=== PATIENT | female | born 1965 | race Caucasian/White ===

== ENCOUNTER 2016-10-04 09:19 | Day surgery (SDC) | payer OTHER ==
[2016-09-28 12:24] LABS: BASOPHILS 0.3 %; BASOPHILS ABSOLUTE 0.03 10/3/uL (0.0-0.16); EOSINOPHILS 1.4 %; EOSINOPHILS ABSOLUTE 0.13 10/3/uL (0.0-0.53); HEMATOCRIT 47.7 % (36.0-48.0); HEMOGLOBIN 16.5 g/dL (12.0-16.0); IMMATURE GRANULOCYTES 0.3 %; IMMATURE GRANULOCYTES ABSOLUTE 0.03 10/3/uL (0.0-0.11); LYMPHOCYTES 30.1 %; LYMPHOCYTES ABSOLUTE 2.72 10/3/uL (0.67-4.30); MANUAL DIFF NO %; MEAN CORPUS HGB CONC 34.6 g/dL (32.0-36.0); MEAN CORPUSCULAR HEMOGLOB 32.2 pg (26.0-34.0); MONOCYTES 5.9 %; MONOCYTES ABSOLUTE 0.53 10/3/uL (0.21-1.20); PLATELET COUNT 226 10/3/uL (150-400); RED CELL COUNT 5.13 10/6/uL (4.0-5.6)
[2016-09-28 12:42] LABS: A/G RATIO 1.2 (0.7-1.9); ALKALINE PHOSPHATASE 80 U/L (45-117); BUN (BLOOD UREA NITROGEN) 12 MG/DL (6-23); CALCIUM, SERUM 9.2 MG/DL (8.5-10.4); CHLORIDE, SERUM 104 MMOL/L (96-112); CO2 (CARBON DIOXIDE) 28 MMOL/L (24-34); CREATININE 0.89 MG/DL (0.55-1.02); GFR AFRICAN AMERICAN 86 ML/MIN (>=60); GFR NON AFRICAN AMERICAN 75 ML/MIN (>=60); SGOT(AST) 43 U/L (5-40); SGPT(ALT) 100 U/L (5-65); SODIUM, SERUM 140 MMOL/L (135-148); TOTAL BILIRUBIN 0.7 MG/DL (0-1.2); TOTAL PROTEIN 7.4 G/DL (6.0-8.5)
[2016-09-28 12:43] LABS: GLOBULIN 3.4 G/DL (2.5-4.1); GLUCOSE, SERUM 167 MG/DL (60-99)
--- NOTE | ~2016-10-04 | PREOPHP ---
PreOp History and Physical [place] [id number] [facility] [place]. [address] NAME: CASE,PEG CARRILLO : 61 [place]US : [place] [facility] [place]#: [id number] AGE: 50 ADM/REG DATE : 10/04/16 MR#: [id number] REPORT SERV DATE: 10/04/16 DICTATED BY: IKE LAWTON III DATE: 09/12/16 REPORT STATUS : Draft TRANSCRIBED BY: MODHazel DATE: 09/12/16 HISTORY OF PRESENT ILLNESS: This 50-year-old female comes to the operating room for a wide local resection of recurrent hidradenitis suppurativa of the right proximal thigh. The patient has a history of recurrent hidradenitis suppurativa of the right proximal thigh. This is associated with recurrent infections and drainage, pain and swelling. The patient had a similar problem which was resected widely approximately three years ago. She comes now for a wide local resection of recurrent hidradenitis suppurativa of the right proximal thigh. PAST MEDICAL HISTORY: 1. History of recent abscess of right anterior thigh related to hidradenitis suppurativa. 2. History of previous right thigh hidradenitis suppurativa, status post resection in 2012. 3. History of incisional hernia repair. 4. History of sigmoid colectomy for diverticular disease. ALLERGIES: NONE. MEDICATIONS: Augmentin. SOCIAL HISTORY: The patient lives in [place], [place]. 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 She is . The patient has a previous history of tobacco use and a current history of alcohol use. FAMILY HISTORY: Positive for diabetes and heart disease. REVIEW OF SYSTEMS: The patient's 14-point review of systems is otherwise unremarkable. PHYSICAL EXAMINATION: GENERAL: This is a somewhat obese female, in no acute distress. She is alert and oriented x3. VITAL SIGNS: Blood pressure 156/94, pulse 72, temperature 97.7. HEENT: Unremarkable. Cranial nerves 2 through 12 are normal. LUNGS: Clear. CARDIAC: Normal. ABDOMEN: Soft, nontender. EXTREMITIES: In the right thigh, there is a small area of induration with open sinus tract. There are several sinus tracts in the area and areas of induration consistent with chronic hidradenitis suppurativa. There was a previous abscess in this area which has been drained. ASSESSMENT: 1. 50-year-old female with recurrent hidradenitis suppurativa of the right proximal thigh or right groin area. 2. Obesity. 3. History of previous sigmoid colectomy for diverticular disease. 4. History of resection of previous hidradenitis suppurativa of the right proximal thigh. PreOp History and Physical [address] [address] NAME: CASE,PEG CARRILLO : 61 STATUS : REG [facility]#: [id number] AGE: 50 ADM/REG DATE : 10/04/16 MR#: [id number] REPORT SERV DATE: 10/04/16 DICTATED BY: IKE LAWTON III DATE: 09/12/16 REPORT STATUS : Draft TRANSCRIBED BY: VLAD DATE: 09/12/16 PLAN: The patient comes now for a wide local resection of this area of hidradenitis suppurativa of the right thigh. This procedure, the risks, benefits, and alternatives, including not limited to the risk for bleeding, infection, pain, swelling, scarring, deformity to the area, seroma formation, hematoma formation, wound failure, wound dehiscence, requiring chronic wound care, recurrent hidradenitis suppurativa requiring further surgery, nerve injury, chronic paresthesia, pain in the thigh, groin, or labia, nerve injury with muscle weakness or paralysis to the involved extremity, chronic lymphedema, and unforeseen complications including deep venous thrombosis, pulmonary embolus, myocardial infarction, stroke, pneumonia, and , have been explained to the patient prior to surgery. Her questions have been answered. She understands the risks and agrees to surgery as planned. SIL/VLAD Ike Lawton III, M.D. / [id number]
--- NOTE | ~2016-10-04 | OP ---
Record Of Operation [facility] [address] [place]. [address] NAME: CASE,PEG CARRILLO : 61 STATUS : [facility]#: [id number] AGE: 50 ADM/REG DATE : 10/04/16 MR#: [id number] REPORT SERV DATE: 10/04/16 DICTATED BY: IKE LAWTON III DATE: 10/04/16 REPORT STATUS : Draft TRANSCRIBED BY: MODHazel DATE: 10/04/16 DATE OF PROCEDURE: 10/04/2016 PREOPERATIVE DIAGNOSIS: Recurrent hidradenitis suppurativa of the proximal right thigh. POSTOPERATIVE DIAGNOSIS: Recurrent hidradenitis suppurativa of the proximal right thigh. PROCEDURE: Wide resection of recurrent hidradenitis suppurativa of the right proximal thigh. SURGEON: Ike Lawton M.D. ANESTHESIA: General with intubation. COMPLICATIONS: None. ESTIMATED BLOOD LOSS: Less than 5 mL. SPECIMENS: Skin and subcutaneous tissue from right proximal thigh. DRAINS: None. LAP AND SPONGE COUNT: Correct x3. BRIEF HISTORY: This 50-year-old female who has a history of previous hidradenitis suppurativa of the right proximal thigh in the right groin. She developed recurrent disease associated with recurrent infections. It was felt that wide resection of this area was indicated. This procedure, the risks, benefits, and alternatives, including not limited to the risk for bleeding, infection, pain, swelling, scarring, deformity to the area, seroma formation, hematoma formation, recurrent disease requiring further surgery, wound failure, wound dehiscence requiring prolonged wound care, nerve injury, chronic paresthesia, pain, numbness, neuralgia or neuroma, and unforeseen complications including deep venous thrombosis, pulmonary embolus, myocardial infarction, stroke, pneumonia and , were fully explained to the patient prior to surgery. The expected length of recovery was explained. The patient's questions were answered. She understood the risks and agreed to surgery as planned. DESCRIPTION OF PROCEDURE: After being properly identified and after discussing the risks of surgery with her again in the preoperative area and after marking the area of concern with a skin marker with her help in the preoperative area, the patient was taken to the operating room and placed in the supine position on the operating room table. General anesthesia was administered. She was intubated without difficulty. The right groin and thigh were prepped and draped sterilely in the usual fashion. After an appropriate "time-out" per [facility] standards, elliptical shaped horizontally oriented incision was made around the area of concern. The incision was continued down to the fascia. Hemostasis was controlled with electrocautery. The entire block of tissue consisting of skin and subcutaneous tissue was then excised down to healthy tissue. The area was inspected both through and around the Record Of Operation [address] [address] NAME: CASE,PEG CARRILLO : 61 STATUS : [facility] PAT#: [id number] AGE: 50 ADM/REG DATE : 10/04/16 MR#: [id number] REPORT SERV DATE: 10/04/16 DICTATED BY: IKE LAWTON III DATE: 10/04/16 REPORT STATUS : Draft TRANSCRIBED BY: VLAD DATE: 10/04/16 incision. There were no other lesions of concern noted. Hemostasis was assured. The subcutaneous tissue was closed with interrupted 3-0 Vicryl sutures. The skin was closed with running subcuticular 4-0 Monocryl stitch. The incision was injected with 0.5% Marcaine. Dermabond was applied. Anesthesia was reversed. The patient was taken to the recovery room in stable condition. She tolerated the procedure well. Her family was informed results of surgery. The patient was discharged when stable and comfortable. Her family was advised that she should not drive for three to four days after surgery while using narcotics, that she should resume her usual medications and that she should keep the wound clean and dry for 48 hours. She was asked to return in two weeks for followup or sooner if any fever, chills, wound drainage, or other problems prior to that time. SIL/VLAD Ike Lawton III, M.D. / [id number] CC: Trever Johnson III, M.D.
[~2016-10-04 09:19] MED LIST: *DENIES; RESTASIS OPH; ZOL50 PO; ZOLOFT25 MG PO
== END 2016-10-04 18:18 | disposition home or self-care (01) ==
LOC: SDC 09:19
PROVIDERS: Surgery
PROC: 0JBC0ZZ Excision of Pelvic Region Subcutaneous Tissue and Fascia, Open Approach (ICD-10-PCS; principal; 2016-10-04 11:30)
DX: L73.2 Hidradenitis suppurativa (principal); F17.210 Nicotine dependence, cigarettes, uncomplicated; E66.9 Obesity, unspecified; Z98.890 Other specified postprocedural states; Z90.49 Acquired absence of other specified parts of digestive tract; Z79.899 Other long term (current) drug therapy; Z83.3 Family history of diabetes mellitus; Z68.33 Body mass index [BMI] 33.0-33.9, adult
CPT/HCPCS: 71020; 80053; 85025; 88304; 93005; A9270-GY; J0360; J0690; J2250; J2550; J3010